=== PATIENT | male | born 1965 | race Caucasian/White ===

== ENCOUNTER → 2016-03-30 | Outpatient (CLI) | payer BC ==
[~2016-03-30] MED LIST: IMD/2 PO; OPTIRAY 320 IV PRN
--- NOTE | 2016-03-30 09:35 | DIAGNOSTIC IMAGING REPORT ---
CT SCAN OF THE ABDOMEN AND PELVIS WITH IV CONTRAST CLINICAL HISTORY: Rectal carcinoma. COMPARISON STUDY: MRI of the liver dated 01/18/2014. Abdominal CT dated 09/30/2015. TECHNIQUE: Following the IV administration of 116 cc of Optiray 320, CT scan of the abdomen and pelvis is performed from the lung bases to the proximal femora. Images are reviewed in the axial, sagittal, and coronal planes. IV contrast was administered without complication. Automated dose control exposure was utilized. FINDINGS: Lung bases: The heart is normal in size and without pericardial effusion. The lung bases are clear. Liver: The contrast-enhanced liver is enlarged, measuring 20.5 cm in length. The liver demonstrates diffusely diminished attenuation consistent with hepatic steatosis. More focal fatty infiltration is identified adjacent to the falciform ligament. There is no intrahepatic biliary ductal dilatation. The hepatic veins and portal veins are patent. There is a 1.9 cm low-attenuation lesion in hepatic segment VII seen on image #86. This has decreased in size from the 01/18/2014 MRI and is unchanged from 09/30/2015. No additional hepatic lesions are clearly visualized. Gallbladder: Calcified gallstones are identified. Spleen: The spleen is enlarged, measuring 14.6 cm in length. Pancreas: Unremarkable. Adrenal glands: Unremarkable. Kidneys: The contrast enhanced kidneys are normal in size and without hydronephrosis. The kidneys enhance symmetrically. Scattered cysts measure up to 4.0 cm. Additional subcentimeter cortical hypodensities also likely represent cysts but are too small for definitive characterization. Abdominal vasculature: The abdominal aorta is normal in course and caliber noting mild to moderate atherosclerotic calcification. Bowel: There are postoperative changes from rectal resection with colorectal anastomosis. No bowel obstruction is seen. There is moderate diverticulosis of the sigmoid colon without CT evidence of acute diverticulitis. Mild to moderate colonic fecal retention is observed. The appendix is well-visualized and normal. Peritoneum: There is no intraperitoneal free air or abdominal ascites. There is a small fat-containing umbilical hernia. A previous laparoscopy port is suspected in the right lower quadrant. Lymphadenopathy: None. Pelvic viscera: The bladder, prostate, and seminal vesicles are normal as visualized. There is a small fat-containing left inguinal hernia. Surgical clips are seen along the spermatic cord bilaterally. Presacral stranding/soft tissue thickening is likely treatment related. Skeletal structures: There is mild lumbosacral spondylosis. No lytic or blastic lesions are seen. There is a bone island in the body of L4. IMPRESSION: 1. There is no evidence of progressive metastatic disease in the abdomen or pelvis. 2. Again seen is a 1.9 cm low-attenuation lesion in the right hepatic lobe. This is unchanged from 09/30/2015 and decreased in size from 01/18/2014. This likely represents a treated metastasis. 3. Hepatomegaly and hepatic steatosis. 4. Splenomegaly. 5. Cholelithiasis. 6. There are postoperative changes from rectal resection with colorectal anastomosis. No bowel obstruction is seen. 7. Moderate sigmoid diverticulosis without CT evidence of acute diverticulitis. 8. Additional changes as above. Electronically signed by: Chuy Moreno M.D. 03/30/2016 9:33 AM Dictated Date/Time: 03/30/2016 9:16 AM
--- NOTE | 2016-03-30 14:10 | DIAGNOSTIC IMAGING REPORT ---
CT OF THE CHEST WITH IV CONTRAST CLINICAL HISTORY: Rectal carcinoma. COMPARISON STUDY: Chest CT September 30, 2015. TECHNIQUE: Following IV administration of 116 mL of Optiray-320, helical axial images of the chest were obtained. Images were viewed in the axial, sagittal and coronal planes. IV contrast was administered without complication. CT DOSE: 1673.09 mGy.cm FINDINGS: No enlarged axillary, mediastinal or hilar lymph nodes are present. The size the heart is normal. There is no pericardial effusion. The central airways are patent. No pneumothorax or pleural effusion is present. There are no suspicious pulmonary nodules. The bony thorax is unremarkable. The abdomen and pelvis will be reported separately. A right hepatic lobe lesion is better depicted on that exam. Please see that report for further description. This lesion appears similar to CT of September 30, 2015 and is decreased in size since exam of January 18, 2014. There is a small gallstone within the gallbladder. IMPRESSION: No evidence of metastatic disease within the chest. Electronically signed by: Nicko Ramon M.D. 03/30/2016 2:08 PM Dictated Date/Time: 03/30/2016 9:19 AM
== END | disposition home or self-care (01) ==
LOC: C.CTS 08:03
PROVIDERS: ATTEND Internal Medicine Hematology
DX: C20 Malignant neoplasm of rectum (principal); C78.7 Secondary malignant neoplasm of liver and intrahepatic bile duct; R16.2 Hepatomegaly with splenomegaly, not elsewhere classified; K76.0 Fatty (change of) liver, not elsewhere classified; K80.20 Calculus of gallbladder without cholecystitis without obstruction; K57.30 Diverticulosis of large intestine without perforation or abscess without bleeding; Z98.0 Intestinal bypass and anastomosis status

== ENCOUNTER → 2016-05-19 | Day surgery (SDC) | payer BC ==
[2016-05-13 07:45] VITALS: BMI 34.0
[~2016-05-19] VITALS: Ht 177.8 cm; Wt 109.1 kg
[~2016-05-19] MED LIST changes: +LIDOCAINE HCL 2% 2 ML VIAL (20MG/ML) ONE; +ONDANSETRON INJ 2 MG/ML 2 ML VIAL IV PRN; -OPTIRAY 320 IV PRN; +PROPOFOL IV EMULSION 10 MG/ML 20 ML VIAL IV ONE
[2016-05-19 09:31] VITALS: Ht 177.8 cm; Wt 109.1 kg
--- NOTE | 2016-05-19 09:56 | Endo History and Physical ---
History & Physical Date of Service: May 19, 2016. Chief Complaint: Hx colon cancer Referring Physician: Dr. Kimbrough History of Present Illness Patient follow-ed for a history of rectal cancer s/p resection 3 years ago. Last colonoscopy 1 year ago with a poor prep. Past Medical History Cancer, Liver Disease Past Surgical History Hx Cardiac Surgery: No Hx Internal Defibrillator: No Hx Pacemaker: No Hx Abdominal Surgery: Yes (COLON RESECTION WITH ILEOSTOMY, ILEOSTOMY REVERSAL, LIVER ABLATION) Hx of Implantable Prosthesis: No Hx Post-Op Nausea and Vomiting: No Hx Cancer Surgery: No Hx Thoracic Surgery: No Hx Orthopedic: No Hx Urinary Tract Surgery: Yes (VASECTOMY) Family History Colon CA Social History Smoking Status: Former Smoker Hx Substance Use: No Hx Alcohol Use: Yes (OCCASIONAL) Allergies Coded Allergies: No Known Allergies (Verified , 05/13/16) Current Medications Reported Home Medications Medications Dose Route/Sig Max Daily Dose Days Date Category Imodium (Loperamide HCl) 2 Mg Cap 2-4 Tabs PO DAILY 05/09/15 Reported Vital Signs Weight (Kilograms): 109.09 Height (Feet): 5 Height (Inches): 10 Date Time Temp Pulse Resp B/P Pulse Ox O2 Delivery O2 Flow Rate FiO2 05/19/16 09:41 37.2 81 16 168/92 94 Room Air Physical Exam General Appearance: no apparent distress Respiratory/Chest: Auscultation: breath sounds normal Cardiovascular: Heart Auscultation: RRR Abdomen: Inspection & Palpation: soft Assessment and Plan colonoscopy for surveillance of colorectal cancer. We have discussed the risks to include bleeding, infection, perforation, pain, missed polyps and infection.
--- NOTE | 2016-05-19 10:35 | Discharge Instructions ---
Endoscopy Patient Instructions Date / Procedure(s) Performed May 19, 2016. Colonoscopy Allergy Information Coded Allergies: No Known Allergies (Verified , 05/19/16) Discharge Date / Findings May 19, 2016. 1 colon polyp Hemorrhoids Medication Instructions Reported Home Medications Medications Dose Route/Sig Max Daily Dose Days Date Category Imodium (Loperamide HCl) 2 Mg Cap 2-4 Tabs PO DAILY 05/09/15 Reported Provider Instructions Activity Restrictions - No exercising or heavy lifting for 24 hours. - Do not drink alcohol the day of the procedure. - Do not drive a car or operate machinery until the day after the procedure. - Do not make any important decisions or sign important papers in 24 hours after the procedure. Following Day: - Return to full activity which may include returning to work/school. Diet Start your diet with liquids and light foods (jello, soup, juice, toast). Then eat your usual diet if not nauseated. Treatment For Common After Affects For mild abdominal pain, bloating, or excessive gas: - Rest - Eat lightly - Lie on right side Follow-Up Information Repeat colonoscopy in 3 years Anesthesia Information What You Should Know You have had a procedure that required some medicine to reduce anxiety and discomfort. This treatment is called moderate sedation. After receiving the treatment, you may be sleepy, but you will be able to breathe on your own. The effects of the treatment may last for several hours. Follow these instructions along with Activity/Diet recommendations noted above: * Do NOT do anything where dizziness or clumsiness would be dangerous. * Rest quietly at home today, then you can be up and about tomorrow. * Have a responsible person stay with you the rest of today. * You may have had an I.V. today. If so, you may take the dressing off later today. Recommendations Call your doctor if: * Trouble breathing * Continuous vomiting for more than 24 hours * Temperature above 101 degrees * Severe abdominal pain or bloating * Pain not relieved by pain medicine ordered * There is increased drainage or redness from any incision * A large amount of rectal bleeding greater than 2-3 tablespoons. (If you had a polyp/s removed or have hemorrhoids, a small amount of blood - from the rectum is to be expected.) * You have any unanswered questions or concerns. IN THE EVENT OF A SERIOUS EMERGENCY, GO TO THE NEAREST EMERGENCY ROOM Your discharge instructions were prepared by provider David Ramey. Patient Instructions Signature Page Alexis Perdomo Patient (or Guardian) Signature/Date: I have read and understand the instructions given to me by my caregivers. Caregiver/RN/Doctor Signature/Date: The above-named patient and/or guardian has received patient instructions on this date. + Original Patient Signature Page (only) stays with chart. Please make copy for patient.
--- NOTE | 2016-05-19 10:40 | GI REPORT ---
Procedure Date: 05/19/2016 10:15 AM Procedure: Colonoscopy Indications: High risk colon cancer surveillance: Personal history of colon cancer Medicines: Monitored Anesthesia Care Complications: No immediate complications. Estimated blood loss: Minimal. Estimated Blood Loss: Estimated blood loss was minimal. Procedure: Pre-Anesthesia Assessment: - Prior to the procedure, a History and Physical was performed, and patient medications, allergies and sensitivities were reviewed. The patient's tolerance of previous anesthesia was reviewed. - The risks and benefits of the procedure and the sedation options and risks were discussed with the patient. All questions were answered and informed consent was obtained. - Patient identification and proposed procedure were verified prior to the procedure by the physician, the nurse and the anchorman. The procedure was verified in the procedure room. - Pre-procedure physical examination revealed no contraindications to sedation. - ASA Grade Assessment: II - A patient with mild systemic disease. - After reviewing the risks and benefits, the patient was deemed in satisfactory condition to undergo the procedure. - The anesthesia plan was to use monitored anesthesia care (MAC). - Immediately prior to administration of medications, the patient was re-assessed for adequacy to receive sedatives. - The heart rate, respiratory rate, oxygen saturations, blood pressure, adequacy of pulmonary ventilation, and response to care were monitored throughout the procedure. - The physical status of the patient was re-assessed after the procedure. After I obtained informed consent, the scope was passed under direct vision. Throughout the procedure, the patient's blood pressure, pulse, and oxygen saturations were monitored continuously. The scope was introduced through the anus and advanced to the terminal ileum. The colonoscopy was performed without difficulty. The patient tolerated the procedure well. The quality of the bowel preparation was good. Findings: The perianal and digital rectal examinations were normal. Pertinent negatives include normal sphincter tone. The terminal ileum appeared normal. A 6 mm polyp was found in the cecum. The polyp was sessile. The polyp was removed with a hot snare. Resection and retrieval were complete. Estimated blood loss was minimal. A few small-mouthed diverticula were found in the sigmoid colon. There was evidence of a prior end-to-end colo-rectal anastomosis in the rectum. This was patent and was characterized by healthy appearing mucosa. The anastomosis was traversed. Internal hemorrhoids were found during endoscopy. The hemorrhoids were mild. The exam was otherwise without abnormality. Impression: - The examined portion of the ileum was normal. - One 6 mm polyp in the cecum, removed with a hot snare. Resected and retrieved. - Mild diverticulosis in the sigmoid colon. - Patent end-to-end colo-rectal anastomosis, characterized by healthy appearing mucosa. - Internal hemorrhoids. - The examination was otherwise normal. Recommendation: - Discharge patient to home (ambulatory). - Advance diet as tolerated today. - Await pathology results. - Repeat colonoscopy in 3 years for surveillance based on pathology results. - Return to GI office PRN. David Ramey D.O. David Ramey, 05/19/2016 10:40:12 AM This report has been signed electronically. Note Initiated On: 05/19/2016 10:15 AM I attest to the content of the Intraoperative Record and orders documented therein, exceptions below
[2016-05-19 10:59] VITALS: BP 139/85; PULSE 83; O2SAT 96
--- NOTE | 2016-05-19 15:22 | Anesthesiology Progress Note ---
Anesthesia Post Op Note Date & Time May 19, 2016 at 15:21 Vital Signs Pain Intensity: 0 Vital Signs Past 12 Hours Date Time Temp Pulse Resp B/P Pulse Ox O2 Delivery O2 Flow Rate FiO2 05/19/16 10:59 83 16 139/85 96 Room Air 05/19/16 10:42 79 16 112/73 95 Room Air 05/19/16 10:30 87 16 101/87 96 Room Air 05/19/16 09:41 37.2 81 16 168/92 94 Room Air Notes Mental Status: alert / awake / arousable, participated in evaluation Pt Amnestic to Procedure: Yes Nausea / Vomiting: adequately controlled Pain: adequately controlled Airway Patency, RR, SpO2: stable & adequate BP & HR: stable & adequate Hydration State: stable & adequate Anesthetic Complications: no major complications apparent
== END | disposition home or self-care (01) ==
LOC: C.GI 09:22
PROVIDERS: ATTEND Internal Medicine Gastroenterology
DX: Z12.11 Encounter for screening for malignant neoplasm of colon (principal); Z85.038 Personal history of other malignant neoplasm of large intestine; D12.0 Benign neoplasm of cecum; K57.30 Diverticulosis of large intestine without perforation or abscess without bleeding; K64.8 Other hemorrhoids; E66.9 Obesity, unspecified; Z93.2 Ileostomy status; Z98.52 Vasectomy status; Z87.891 Personal history of nicotine dependence; M19.90 Unspecified osteoarthritis, unspecified site; Z80.0 Family history of malignant neoplasm of digestive organs

== ENCOUNTER → 2016-09-30 | Outpatient (CLI) | payer BC ==
[~2016-09-30] MED LIST changes: -LIDOCAINE HCL 2% 2 ML VIAL (20MG/ML) ONE; -ONDANSETRON INJ 2 MG/ML 2 ML VIAL IV PRN; +OPTIRAY 320 IV PRN; -PROPOFOL IV EMULSION 10 MG/ML 20 ML VIAL IV ONE
--- NOTE | 2016-09-30 10:13 | DIAGNOSTIC IMAGING REPORT ---
CHEST CT WITH CONTRAST CT DOSE: 2278.35 mGy.cm HISTORY: Rectal carcinoma RECTAL CA TECHNIQUE: Multiaxial CT images of the chest were performed following the intravenous administration of contrast. COMPARISON: 03/30/2016 FINDINGS: Unchanged exam overall. The lungs remain clear. Several small nodes in the aortopulmonary window are unchanged. There are no new interval or progressive findings. Fatty infiltration of liver persists. The right hepatic lobe nodular-type density appears unchanged. IMPRESSION: Negative chest. No change from the prior study. Electronically signed by: Yo Munson M.D. 09/30/2016 10:11 AM Dictated Date/Time: 09/30/2016 10:08 AM
--- NOTE | 2016-09-30 10:21 | DIAGNOSTIC IMAGING REPORT ---
ABDOMEN AND PELVIS CT WITH IV AND ORAL CONTRAST CT DOSE: HISTORY: Rectal carcinoma RECTAL CA TECHNIQUE: Multiaxial CT images of the abdomen and pelvis were performed following the use of intravenous and oral contrast. COMPARISON STUDY: 03/30/2016 FINDINGS: Lung bases remain clear. Mild fatty infiltration of liver. The right hepatic lobe nodule previously described is unchanged. There are no new or interval findings. Spleen remains mildly enlarged. Gallstones are present within the gallbladder lumen. There are several renal cysts unchanged in the prior study. Study is negative for hydronephrosis. There is no significant abdominal pelvic or inguinal adenopathy. The bowel pattern throughout is nonobstructive. There is stable presacral and perirectal soft tissue and post therapeutic changes. There is no evidence for recurrent disease based on this exam. IMPRESSION: 1. Stable exam with no change from the prior study. 2. No evidence for new interval or progressive disease. 3. Stable nodule of the liver, fatty infiltration of liver, gallstones, and renal cysts considered stable. Electronically signed by: Yo Munson M.D. 09/30/2016 10:20 AM Dictated Date/Time: 09/30/2016 10:12 AM
== END | disposition home or self-care (01) ==
LOC: C.CTS 09:27
PROVIDERS: ATTEND Internal Medicine Hematology
DX: C20 Malignant neoplasm of rectum (principal); K76.0 Fatty (change of) liver, not elsewhere classified; N28.1 Cyst of kidney, acquired